=== PATIENT | female | born 1940 | race Caucasian/White ===

== ENCOUNTER 2016-08-09 03:47 | Observation (INO) | payer OTHER ==
[~2016-08-09] VITALS: Ht 172.7 cm; Wt 127.4 kg
[~2016-08-09 03:47] MED LIST: ACCUNEB0.63 MG/3 IH; ACTOS15 MG PO; AFRIN,GENASAL D15 ML BOTH NARES; ALAVERT10 MG PO; AMANTADINE100 M1 PO; AMANTADINE100 MG PO; AMITIZA24 MICROGR PO; AMITRIPTYLINE H50 MG PO; ASPIR-TRIN325 M1 PO; ASPIRIN325 MG PO; ATHENOL325 MG PO; ATIVAN0.5 MG PO; ATROVENT 00.5 MG/2.5 IH; BENZTROPINE MESY1 MG PO; BUPROPION XL300 MG PO; CHEWABLE-VITE1 EACH PO; CIPRO500 MG PO; CLARITIN-D 121 EACH PO; COGENTIN1 MG PO; COLACE100 MG PO; Cogentin PO; Colace PO; DAILY VALUE1 EACH PO; DAILY VITAMIN1 EAC8 PO; DULCOLAX10 MG PR; DULCOLAX5 MG PO; Dulcolax PO; ECOTRIN325 MG PO; ELAVIL25 MG PO; ELAVIL50 MG PO; ENDOCET 5-3251 EACH PO; EUCERIN CREME120 GM TP; Ecotrin PO; Elavil PO; FENOFIBRATE48 MG PO; FERROUS SULFAT325 MG PO; FLEET ENEMA EX230 ML PR; FLEET ENEMA-AD118 ML PR; FLEET MINERAL133 ML PR; FLORASTOR250 MG PO; FLUPHENAZINE HC10 MG PO; FLUPHENAZINE HCL5 MG PO; FLUVIRIN IM; GABAPENTIN600 MG PO; GLUCAGEN1 MG IM/SC; GLUCAGON1 MG IM; GLUCOPHAGE1000 MG; GLUTOSE 1537.5 GM PO; GUAIFENESIN DA473 ML PO; HUMALOG100 UNIT/1 SC; HUMALOG100 UNIT/2 SC; HYDROCODON-ACE1 EAC7; IRON325 M1 PO; IRON325 MG PO; JANUVIA25 M1 PO; KLOR-CON20 MEQ PO; LANTUS 10100 UNITS/ SC; LANTUS 3 M100 UNITS1 SC; LATANOPROST2.5 ML BOTH EYES; LEVAQUIN750 MG PO; LEVEMIR FL100 UNITS/ SC; LEVEMIR100 UNIT/2 SC; LEVOFLOXACIN500 MG PO; LEVOFLOXACIN750 MG PO; LIDOCAINE 2% TP; LISINOPRIL10 MG PO; LITE COAT ASPI325 M1 PO; LOPRESSOR25 MG PO; LORAZEPAM0.5 MG PO; MELATIN3 MG PO; MELATONIN5 M1 PO; MELATONIN5 M3 PO; METFORMIN HCL1000 MG PO; METFORMIN HCL500 MG PO; METOPROLOL TART25 MG PO; MILK OF MAG; MILK OF MAGN PO; MIRALAX17 GM PO; MIRALAX255 GM PO; MORPHINE SULFAT30 M1 PO; MORPHINE SULFAT30 M5 PO; MOTRIN400 MG PO; MS CONTIN,ORAMO30 MG PO; MUCINEX D ER T1 EACH PO; MUCINEX600 MG PO; MULTIPLE VITAM1 EACH PO; MULTIVITAMINS1 EAC2 PO; NEURONTIN600 MG PO; NOVOLOG 10100 UNITS/ SC; NOVOLOG 10100 UNITS/ SQ; NOVOLOG PE100 UNITS/ SC; Neurontin PO; OCEAN NASAL 0.645 ML BOTH NARES; ONE DAILY1 EAC3 PO; OXAYDO5 MG PO; PAIN RELIEF325 MG PO; PERCOCET 5/31 TABLET PO; PERI-COLACE TA1 EACH PO; PHILLIPS'400 MG/5 M PO; PRAVASTATIN SOD40 MG PO; PRINIVIL10 MG PO; PRINIVIL20 MG PO; PROLIXIN10 MG PO; PROLIXIN2.5 MG PO; PROMETHAZINE HC25 MG PR; QUETIAPINE FUM200 MG PO; RISAMINE OINTM113 GM TP; SENNA CONCENTR8.6 MG PO; SENNA LAXATIVE8.6 MG PO; SENNA PLUS TAB1 EACH PO; SENNA S TABLET1 EACH PO; SENNA-DOCUSATE1 EAC1 PO; SENNA-S TABLET1 EACH PO; SIMVASTATIN20 MG PO; SODIUM CHLORIDE1 G1 PO; SYSTANE 0.3-0.1 EACH BOTH EYES; SYSTANE 0.300 DROP/1 BOTH EYES; SYSTANE GEL EYE10 ML BOTH EYES; SYSTANE GEL EYE10 ML LEFT EYE; SYSTANE ULTRA 015 ML BOTH EYES; TOPAMAX50 MG PO; TOPIRAGEN50 MG PO; TOPIRAMATE50 MG; TOPIRAMATE50 MG PO; TRICOR48 MG PO; TRIHEXYPHENIDYL2 MG PO; TYLENOL EXTRA500 MG PO; TYLENOL REGULA325 MG PO; Tricor PO; XALATAN2.5 ML BOTH EYES; ZANTAC75 M1 PO; ZESTRIL10 MG PO; ZOCOR20 MG PO; ZYRTEC5 MG PO
[2016-08-09 04:24] LABS: EOSINOPHIL (%) 0.7 % (0-5); EOSINOPHIL COUNT 0.1 K/uL (0-0.3); HEMATOCRIT 34.7 % (36.0-46.0); IMMATURE GRANULOCYTE COUNT 0.1 K/uL; INSTRUMENT ABS NEUTROPHIL CT 10.9 K/uL; LYMPHOCYTE COUNT 0.6 K/uL (1.0-2.8); MCH 29.9 PG (29.0-34.0); MCHC 33.4 G/DL (30.0-36.0); MCV 89.4 FL (83-99); MEAN PLAT.VOLUME 12.7 uM^3 (9.5-12.4); MONOCYTE (%) 4.2 % (3-12); MONOCYTE COUNT 0.5 K/uL (0-0.8); NEUTROPHIL COUNT 10.9 K/uL (1.8-6.4); RBC DIS.WIDTH-CV 13.2 % (11.8-14.6); RBC DIS.WIDTH-SD 43.2 % (39-53); RED BLOOD COUNT 3.88 M/uL (3.80-5.20); WHITE BLOOD COUNT 12.3 K/uL (4.1-10.2)
[2016-08-09 04:26] LABS: PLATELET COUNT 174 K/uL (156-360)
[2016-08-09 04:35] LABS: CHLORIDE 103 mEq/L (99-109); SODIUM 140 mEq/L (136-147)
[2016-08-09 04:38] LABS: ANION GAP 13 MEQ/L (2-14)
[2016-08-09 04:40] LABS: GFR ESTIMATE (CALCULATED) > 59 mL/min/
[2016-08-09 04:41] LABS: UREA NITROGEN (BUN) 12 mg/dL (9-23)
[2016-08-09 04:43] LABS: GLUCOSE 195 mg/dL (70-99); POTASSIUM 4.4 mEq/L (3.7-5.4)
[2016-08-09 04:44] LABS: TROP-I INTERPRETATION NEGATIVE; TROPONIN-I < 0.01 ng/mL (0.0-0.30)
[2016-08-09] MEDS ORDERED: LIPITOR10 MG PO (08:57)
[2016-08-09] MEDS ORDERED: BREATHE RIGHT1 EACH TP (08:58)
[2016-08-09] MEDS ORDERED: PROLIXIN10 MG PO (09:00)
[2016-08-09] MEDS ORDERED: LISINOPRIL5 MG PO (09:03)
[2016-08-09] MEDS ORDERED: SEROQUEL200 MG PO (09:05)
[2016-08-09] MEDS ORDERED: ZOLOFT50 MG PO (09:06)
[2016-08-09] MEDS ORDERED: ELIQUIS5 MG PO (09:08)
[2016-08-09] MEDS ORDERED: NEURONTIN400 MG PO (09:10)
[2016-08-09] MEDS ORDERED: SINEMET 25-1001 EACH PO (09:13)
[2016-08-09] MEDS ORDERED: DUONEB 2.5-0.5 M3 ML AEROSOL (09:15)
[2016-08-09] MEDS ORDERED: GLUCOSE GEL15 GM PO (09:16)
[2016-08-09] MEDS ORDERED: NITROSTAT0.4 MG SL (09:18)
[2016-08-09] MEDS ORDERED: TUMS500 MG PO (09:19)
[2016-08-09 09:58] VITALS: BP 109/54
[2016-08-09 10:13] LABS: POINT-OF-CARE METER ID UU13113700
[2016-08-09 11:49] LABS: METH RESISTANT S AUREUS PCR NEGATIVE (NEGATIVE)
[2016-08-09 11:57] LABS: PROBE CHECK PASS; SPECIMEN PROCESSING CONTROL PASS
[2016-08-09 12:09] VITALS: BP 93/60
[2016-08-09 13:25] LABS: TROP-I INTERPRETATION NEGATIVE; TROPONIN-I < 0.01 ng/mL (0.0-0.30)
[2016-08-09 18:05] LABS: POINT-OF-CARE METER ID UU13113700
[2016-08-09 20:26] LABS: TROP-I INTERPRETATION NEGATIVE; TROPONIN-I < 0.01 ng/mL (0.0-0.30)
[2016-08-09 20:47] VITALS: BP 100/40
[2016-08-09 21:07] LABS: EOSINOPHIL (%) 0.9 % (0-5); EOSINOPHIL COUNT 0.1 K/uL (0-0.3); HEMATOCRIT 31.4 % (36.0-46.0); IMMATURE GRANULOCYTE (%) 0.9 % (0.0-0.7); IMMATURE GRANULOCYTE COUNT 0.1 K/uL; MCHC 33.8 G/DL (30.0-36.0); MEAN PLAT.VOLUME 12.2 uM^3 (9.5-12.4); MONOCYTE (%) 4.8 % (3-12); MONOCYTE COUNT 0.5 K/uL (0-0.8); NEUTROPHIL (%) 83.1 % (45-76); PLATELET COUNT 185 K/uL (156-360); RBC DIS.WIDTH-CV 13.2 % (11.8-14.6); RBC DIS.WIDTH-SD 43.1 % (39-53); RED BLOOD COUNT 3.53 M/uL (3.80-5.20); WHITE BLOOD COUNT 9.6 K/uL (4.1-10.2)
[2016-08-09 21:17] LABS: INTER. NORMALIZED RATIO 1.2; PROTHROMBIN TIME 11.8 (9.2-11.2)
[2016-08-09 21:29] LABS: ALKALINE PHOSPHATASE 183 IU/L (3-129); ANION GAP 10 MEQ/L (2-14); CHLORIDE 99 MEQ/L (99-109); GFR ESTIMATE (CALCULATED) > 59 mL/min/; GLUCOSE 196 mg/dL (70-99); POTASSIUM 3.6 MEQ/L (3.7-5.4); SAMPLE HEMOLYSIS CHECK 0; SAMPLE ICTERIC CHECK 0; SAMPLE LIPEMIA CHECK 0; SODIUM 134 MEQ/L (136-147); TOTAL BILIRUBIN 0.7 MG/DL (0.0-1.0); UREA NITROGEN (BUN) 13 mg/dL (9-23)
[2016-08-10] VITALS: BP 125/69
[2016-08-10 01:17] LABS: ADD MIUA? YES; BILIRUBIN NEGATIVE; BLOOD SMALL; COLOR YELLOW ((YELLOW)); GLUCOSE (STRIP) NEGATIVE; KETONES NEGATIVE; LEUKOCYTES LARGE; NITRITE POSITIVE; PROTEIN (STRIP) NEGATIVE; SPECIFIC GRAVITY 1.005 (1.000-1.030); UROBILINOGEN 0.2 MG/DL (0.2-1.0)
[2016-08-10 01:59] LABS: AMORPHOUS URATES CRYSTALS 3+; BACTERIA 2+ /HPF; CRYSTALS PRESENT; EPITHELIAL CELLS 1+ /HPF; MUCUS 1+ /LPF; UCUL ADDED? YES; WHITE BLOOD CELLS 15-20 /HPF (0-5)
[2016-08-10 05:00] VITALS: BP 137/69
[2016-08-10 08:44] LABS: POINT-OF-CARE METER ID UU13113700
[2016-08-10 09:24] LABS: HEMATOCRIT 30.6 % (36.0-46.0); MCH 30.6 PG (29.0-34.0); MCHC 33.7 G/DL (30.0-36.0); MCV 90.8 FL (83-99); MEAN PLAT.VOLUME 12.1 uM^3 (9.5-12.4); PLATELET COUNT 163 K/uL (156-360); RBC DIS.WIDTH-CV 13.4 % (11.8-14.6); RBC DIS.WIDTH-SD 44.3 % (39-53); RED BLOOD COUNT 3.37 M/uL (3.80-5.20); WHITE BLOOD COUNT 7.1 K/uL (4.1-10.2)
[2016-08-10 09:41] LABS: ANION GAP 9 MEQ/L (2-14); CHLORIDE 102 MEQ/L (99-109); POTASSIUM 3.7 MEQ/L (3.7-5.4); SAMPLE HEMOLYSIS CHECK 0; SAMPLE ICTERIC CHECK 0; SAMPLE LIPEMIA CHECK 0; SODIUM 139 MEQ/L (136-147); TOTAL BILIRUBIN 0.7 MG/DL (0.0-1.0)
[2016-08-10 09:49] LABS: ALKALINE PHOSPHATASE 178 IU/L (3-129); GFR ESTIMATE (CALCULATED) > 59 mL/min/; GLUCOSE 161 mg/dL (70-99); UREA NITROGEN (BUN) 10 mg/dL (9-23)
[2016-08-10 11:50] VITALS: BP 127/90
[2016-08-10] MEDS ORDERED: LEVAQUIN500 MG PO (12:10)
[2016-08-10 12:25] LABS: POINT-OF-CARE METER ID UU13113700
== END 2016-08-10 16:03 ==
LOC: EME 03:47 → 5WEST 07:34 → EDOF 07:34 → 5WEST 08:56
PROVIDERS: Emergency Medicine; Hospitalist; Internal Medicine; Nurse Practitioner Adult Health; Physician Assistant Medical
DX: R07.89 Other chest pain (principal); N39.0 Urinary tract infection, site not specified; D72.829 Elevated white blood cell count, unspecified; M79.7 Fibromyalgia; E11.42 Type 2 diabetes mellitus with diabetic polyneuropathy; Z79.4 Long term (current) use of insulin; I10 Essential (primary) hypertension; E66.01 Morbid (severe) obesity due to excess calories; Z68.41 Body mass index [BMI] 40.0-44.9, adult; F20.9 Schizophrenia, unspecified; F32.9 Major depressive disorder, single episode, unspecified; R32 Unspecified urinary incontinence; L24.89 Irritant contact dermatitis due to other agents; I95.9 Hypotension, unspecified; G89.4 Chronic pain syndrome; I45.10 Unspecified right bundle-branch block
CPT/HCPCS: 71010; 80048; 80053; 81003; 82948; 83605; 84484; 85025; 85025 91; 85027; 85610; 87040; 87077; 87086; 87186; 87641; 87801; 93005; 93306; 99202; 99281; 99284; G0378; J1650; J1815; J1956; J3010; J7120

== ENCOUNTER 2017-02-14 11:06 | Inpatient (IN) | payer OTHER ==
[~2017-02-14] VITALS: Ht 172.7 cm; Wt 126.4 kg
[~2017-02-14 11:06] MED LIST changes: +BREATHE RIGHT1 EACH TP; +DUONEB 2.5-0.5 M3 ML AEROSOL; +ELIQUIS5 MG PO; +GLUCOSE GEL38 GM PO; +JANUVIA100 MG PO; -JANUVIA25 M1 PO; +LEVAQUIN500 MG PO; +LIPITOR10 MG PO; +LISINOPRIL5 MG PO; +NEURONTIN400 MG PO; +NITROSTAT0.4 MG SL; +SEROQUEL200 MG PO; +SINEMET 25-1001 EACH PO; +TUMS500 MG PO; +ZOLOFT50 MG PO
[2017-02-14 11:31] LABS: BASOPHIL (%) 0.1 % (0-1); EOSINOPHIL (%) 0 % (0-5); HEMATOCRIT 30.4 % (36.0-46.0); HEMOGLOBIN 10.3 G/DL (11.9-15.5); IMMATURE GRANULOCYTE (%) 0.8 % (0.0-0.7); LYMPHOCYTE (%) 2.9 % (15-42); LYMPHOCYTE COUNT 0.5 K/uL (1.0-2.8); MCH 30.7 PG (29.0-34.0); MCHC 33.9 G/DL (30.0-36.0); MCV 90.5 FL (83-99); MONOCYTE (%) 4.6 % (3-12); MONOCYTE COUNT 0.7 K/uL (0-0.8); NEUTROPHIL (%) 91.6 % (45-76); NEUTROPHIL COUNT 14.8 K/uL (1.8-6.4); PLATELET COUNT 169 K/uL (156-360); RBC DIS.WIDTH-CV 14.3 % (11.8-14.6); RBC DIS.WIDTH-SD 45.8 % (39-53); RED BLOOD COUNT 3.36 M/uL (3.80-5.20); WHITE BLOOD COUNT 16.2 K/uL (4.1-10.2)
[2017-02-14 11:52] LABS: ALBUMIN 2.9 g/dL (3.2-4.8); CHLORIDE 97 mEq/L (99-109); POTASSIUM 4.5 mEq/L (3.7-5.4); SODIUM 131 mEq/L (136-147)
[2017-02-14 11:54] LABS: GLUCOSE 376 mg/dL (70-99); TOTAL PROTEIN 5.8 g/dL (6.4-8.3)
[2017-02-14 11:56] LABS: TOTAL BILIRUBIN 8.2 mg/dL (0.0-1.0)
[2017-02-14 11:58] LABS: APPEARANCE CLOUDY ((CLEAR)); BILIRUBIN MODERATE; BLOOD SMALL; COLOR AMBER ((YELLOW)); GLUCOSE (STRIP) NEGATIVE; KETONES 5; LEUKOCYTES NEGATIVE; NITRITE NEGATIVE; PROTEIN (STRIP) 100; SPECIFIC GRAVITY 1.017 (1.000-1.030)
[2017-02-14 11:58] LABS: ALKALINE PHOSPHATASE 282 IU/L (3-129); CREATININE 1.2 mg/dL (0.6-1.3); GFR ESTIMATE (CALCULATED) 47 mL/min/
[2017-02-14 11:59] LABS: UREA NITROGEN (BUN) 27 mg/dL (9-23)
[2017-02-14 12:00] LABS: AST (GOT) 296 IU/L (2-34); DIRECT BILIRUBIN 7.2 mg/dL (0.0-0.3)
[2017-02-14 12:01] LABS: ALT (GPT) 415 IU/L (3-49); LIPASE 21 U/L (1.0-51.0)
[2017-02-14 12:20] LABS: TROP-I INTERPRETATION NEGATIVE; TROPONIN-I 0.01 ng/mL (0.0-0.30)
[2017-02-14 12:30] LABS: INTER. NORMALIZED RATIO 2.3
[2017-02-14 12:30] LABS: AMORPHOUS URATES CRYSTALS 3+; BACTERIA 3+ /HPF; EPITHELIAL CELLS 2+ /HPF; MUCUS NONE SEEN /LPF; RED BLOOD CELLS 0-5 /HPF (0-5); UCUL ADDED? YES; WHITE BLOOD CELLS 0-5 /HPF (0-5)
[2017-02-14 12:59] LABS: ICTOTEST POSITIVE
[2017-02-14] MEDS ORDERED: FLUPHENAZINE HCL5 MG PO (16:27)
[2017-02-14] MEDS ORDERED: KLOR-CON SPRIN10 MEQ PO (16:28)
[2017-02-14] MEDS ORDERED: LANTUS 3 M100 UNITS1 SC (16:29)
[2017-02-14] MEDS ORDERED: HYDROCODON-ACE1 EAC7 PO (16:34)
[2017-02-14] MEDS ORDERED: MYSOLINE50 MG PO (16:36)
[2017-02-14] MEDS ORDERED: MIRALAX17 GM PO (16:36)
[2017-02-14] MEDS ORDERED: IMODIUM A-D2 M2 PO (16:41)
[2017-02-14 20:43] VITALS: BP 106/53
[2017-02-15] VITALS (7 sets, daily range): BP systolic 96–172; BP diastolic 42–78
[2017-02-15 05:39] LABS: INTER. NORMALIZED RATIO 2.5
[2017-02-15 05:45] LABS: BASOPHIL (%) 0.1 % (0-1); EOSINOPHIL (%) 0.2 % (0-5); HEMATOCRIT 22.1 % (36.0-46.0); IMMATURE GRANULOCYTE (%) 0.7 % (0.0-0.7); LYMPHOCYTE (%) 11.4 % (15-42); LYMPHOCYTE COUNT 0.9 K/uL (1.0-2.8); MCH 29.7 PG (29.0-34.0); MCHC 32.1 G/DL (30.0-36.0); MCV 92.5 FL (83-99); MONOCYTE COUNT 0.5 K/uL (0-0.8); NEUTROPHIL (%) 81.6 % (45-76); NEUTROPHIL COUNT 6.7 K/uL (1.8-6.4); RBC DIS.WIDTH-CV 14.6 % (11.8-14.6); RBC DIS.WIDTH-SD 48.6 % (39-53); WHITE BLOOD COUNT 8.2 K/uL (4.1-10.2)
[2017-02-15 05:46] LABS: HEMOGLOBIN 7.1 G/DL (11.9-15.5); RED BLOOD COUNT 2.39 M/uL (3.80-5.20)
[2017-02-15 06:06] LABS: ALBUMIN 2.3 G/DL (3.2-4.8); ALKALINE PHOSPHATASE 162 IU/L (3-129); ALT (GPT) 202 IU/L (3-49); AST (GOT) 77 IU/L (2-34); CHLORIDE 105 MEQ/L (99-109); CREATININE 1.1 MG/DL (0.6-1.3); GFR ESTIMATE (CALCULATED) 51 mL/min/; GLUCOSE 235 mg/dL (70-99); POTASSIUM 4.1 MEQ/L (3.7-5.4); SODIUM 135 MEQ/L (136-147); TOTAL BILIRUBIN 2.7 MG/DL (0.0-1.0); TOTAL PROTEIN 4.2 G/DL (6.4-8.3); UREA NITROGEN (BUN) 37 mg/dL (9-23)
[2017-02-15 06:22] LABS: PLAT.SUFFICIENCY ADEQUATE
[2017-02-15 06:24] LABS: PLATELET COUNT 111 K/uL (156-360)
[2017-02-16 04:40] VITALS: BP 128/59
[2017-02-16 06:17] LABS: GFR ESTIMATE (CALCULATED) > 59 mL/min/; UREA NITROGEN (BUN) 22 mg/dL (9-23)
[2017-02-16 06:23] LABS: CREATININE 0.6 MG/DL (0.6-1.3)
[2017-02-16 08:30] VITALS: BP 130/64
[2017-02-16 08:47] LABS: BASOPHIL (%) 0.4 % (0-1); EOSINOPHIL (%) 4.8 % (0-5); EOSINOPHIL COUNT 0.3 K/uL (0-0.3); HEMATOCRIT 23.5 % (36.0-46.0); HEMOGLOBIN 7.5 G/DL (11.9-15.5); IMMATURE GRANULOCYTE (%) 0.4 % (0.0-0.7); LYMPHOCYTE (%) 16.7 % (15-42); LYMPHOCYTE COUNT 0.9 K/uL (1.0-2.8); MCH 29.8 PG (29.0-34.0); MCHC 31.9 G/DL (30.0-36.0); MCV 93.3 FL (83-99); MONOCYTE (%) 6.1 % (3-12); MONOCYTE COUNT 0.3 K/uL (0-0.8); NEUTROPHIL (%) 71.6 % (45-76); NEUTROPHIL COUNT 3.9 K/uL (1.8-6.4); PLATELET COUNT 132 K/uL (156-360); RBC DIS.WIDTH-CV 14.6 % (11.8-14.6); RBC DIS.WIDTH-SD 49.4 % (39-53); RED BLOOD COUNT 2.52 M/uL (3.80-5.20); WHITE BLOOD COUNT 5.4 K/uL (4.1-10.2)
[2017-02-16 08:58] LABS: ALBUMIN 2.5 G/DL (3.2-4.8); ALKALINE PHOSPHATASE 149 IU/L (3-129); ALT (GPT) 142 IU/L (3-49); CHLORIDE 109 MEQ/L (99-109); POTASSIUM 3.6 MEQ/L (3.7-5.4); SODIUM 138 MEQ/L (136-147); TOTAL PROTEIN 4.5 G/DL (6.4-8.3)
[2017-02-16 09:02] LABS: AST (GOT) 41 IU/L (2-34); GLUCOSE 100 mg/dL (70-99); TOTAL BILIRUBIN 1.6 MG/DL (0.0-1.0)
[2017-02-16 12:30] VITALS: BP 116/64
[2017-02-16 16:40] VITALS: BP 128/70
[2017-02-16 19:10] VITALS: BP 138/80
[2017-02-16 22:25] VITALS: BP 120/68
[2017-02-17 03:53] VITALS: BP 148/65
[2017-02-17 06:13] LABS: BASOPHIL (%) 0.4 % (0-1); EOSINOPHIL (%) 4.7 % (0-5); EOSINOPHIL COUNT 0.2 K/uL (0-0.3); HEMATOCRIT 22.8 % (36.0-46.0); HEMOGLOBIN 7.5 G/DL (11.9-15.5); IMMATURE GRANULOCYTE (%) 0.6 % (0.0-0.7); LYMPHOCYTE (%) 23.5 % (15-42); LYMPHOCYTE COUNT 1.1 K/uL (1.0-2.8); MCH 31.3 PG (29.0-34.0); MCHC 32.9 G/DL (30.0-36.0); MONOCYTE (%) 7.8 % (3-12); MONOCYTE COUNT 0.4 K/uL (0-0.8); PLATELET COUNT 131 K/uL (156-360); RBC DIS.WIDTH-CV 14.9 % (11.8-14.6); RBC DIS.WIDTH-SD 52.4 % (39-53); WHITE BLOOD COUNT 4.7 K/uL (4.1-10.2)
[2017-02-17 06:28] LABS: INTER. NORMALIZED RATIO 1.4
[2017-02-17 06:45] LABS: ALBUMIN 2.5 G/DL (3.2-4.8); ALKALINE PHOSPHATASE 129 IU/L (3-129); ALT (GPT) 99 IU/L (3-49); AST (GOT) 31 IU/L (2-34); CHLORIDE 111 MEQ/L (99-109); CREATININE 0.4 MG/DL (0.6-1.3); GFR ESTIMATE (CALCULATED) > 59 mL/min/; GLUCOSE 121 mg/dL (70-99); POTASSIUM 3.8 MEQ/L (3.7-5.4); SODIUM 142 MEQ/L (136-147); TOTAL PROTEIN 4.6 G/DL (6.4-8.3); UREA NITROGEN (BUN) 12 mg/dL (9-23)
[2017-02-17 06:57] LABS: TOTAL BILIRUBIN 1.2 MG/DL (0.0-1.0)
[2017-02-17 08:00] VITALS: BP 142/70
[2017-02-17 12:06] VITALS: BP 138/76
[2017-02-17 16:00] VITALS: BP 148/78
[2017-02-17 19:30] VITALS: BP 130/65
[2017-02-18] VITALS (7 sets, daily range): BP systolic 118–149; BP diastolic 51–78
[2017-02-19 03:03] VITALS: BP 130/70
[2017-02-19 04:58] LABS: ALBUMIN 2.4 g/dL (3.2-4.8); POTASSIUM 3.2 mEq/L (3.7-5.4); SODIUM 138 mEq/L (136-147)
[2017-02-19 04:59] LABS: CHLORIDE 108 mEq/L (99-109)
[2017-02-19 05:01] LABS: GLUCOSE 177 mg/dL (70-99)
[2017-02-19 05:04] LABS: CREATININE 0.5 mg/dL (0.6-1.3); GFR ESTIMATE (CALCULATED) > 59 mL/min/; TOTAL BILIRUBIN 0.8 mg/dL (0.0-1.0); TOTAL PROTEIN 4.9 g/dL (6.4-8.3)
[2017-02-19 05:05] LABS: ALKALINE PHOSPHATASE 115 IU/L (3-129); UREA NITROGEN (BUN) 8 mg/dL (9-23)
[2017-02-19 05:07] LABS: ALT (GPT) 56 IU/L (3-49)
[2017-02-19 05:08] LABS: AST (GOT) 13 IU/L (2-34)
[2017-02-19 08:15] VITALS: BP 130/80
[2017-02-19 12:30] VITALS: BP 126/72
[2017-02-19 16:40] VITALS: BP 122/78
[2017-02-19 20:03] VITALS: BP 118/62
[2017-02-19 23:09] VITALS: BP 112/60
[2017-02-20] VITALS (7 sets, daily range): BP systolic 126–140; BP diastolic 60–86
[2017-02-21] VITALS (12 sets, daily range): BP systolic 138–164; BP diastolic 60–80
[2017-02-21 07:43] LABS: MCH 28.6 PG (29.0-34.0); NRBC (%) 0.5 /100 WBC (0-0); RBC DIS.WIDTH-SD 50.9 % (39-53)
[2017-02-21 07:44] LABS: HEMOGLOBIN 11.2 G/DL (11.9-15.5); MCV 89.5 FL (83-99); PLATELET COUNT 214 K/uL (156-360); RED BLOOD COUNT 3.91 M/uL (3.80-5.20)
[2017-02-21 08:01] LABS: CHLORIDE 103 MEQ/L (99-109); CREATININE 0.3 MG/DL (0.6-1.3); GFR ESTIMATE (CALCULATED) > 59 mL/min/; GLUCOSE 122 mg/dL (70-99); MAGNESIUM 1.3 mg/dl (1.3-2.7); PHOSPHORUS 2.9 mg/dL (2.5-4.9); POTASSIUM 3.3 MEQ/L (3.7-5.4); SODIUM 139 MEQ/L (136-147); UREA NITROGEN (BUN) 7 mg/dL (9-23)
[2017-02-21 09:29] LABS: ALBUMIN 2.9 G/DL (3.2-4.8); ALKALINE PHOSPHATASE 104 IU/L (3-129); ALT (GPT) 30 IU/L (3-49); AST (GOT) 17 IU/L (2-34); DIRECT BILIRUBIN 0.3 mg/dL (0.0-0.3); TOTAL BILIRUBIN 0.9 MG/DL (0.0-1.0); TOTAL PROTEIN 5.3 G/DL (6.4-8.3)
[2017-02-22 04:22] VITALS: BP 159/100
[2017-02-22 05:05] LABS: HEMATOCRIT 36.2 % (36.0-46.0); HEMOGLOBIN 11.8 G/DL (11.9-15.5); MCH 29.8 PG (29.0-34.0); MCHC 32.6 G/DL (30.0-36.0); MCV 91.4 FL (83-99); PLATELET COUNT 214 K/uL (156-360); RBC DIS.WIDTH-CV 16.4 % (11.8-14.6); RBC DIS.WIDTH-SD 53.1 % (39-53); RED BLOOD COUNT 3.96 M/uL (3.80-5.20); WHITE BLOOD COUNT 14.3 K/uL (4.1-10.2)
[2017-02-22 05:22] LABS: ALBUMIN 2.8 g/dL (3.2-4.8); CHLORIDE 105 mEq/L (99-109); POTASSIUM 3.9 mEq/L (3.7-5.4); SODIUM 138 mEq/L (136-147)
[2017-02-22 05:26] LABS: TOTAL BILIRUBIN 0.7 mg/dL (0.0-1.0)
[2017-02-22 05:27] LABS: GLUCOSE 195 mg/dL (70-99)
[2017-02-22 05:28] LABS: ALKALINE PHOSPHATASE 109 IU/L (3-129); CREATININE 0.7 mg/dL (0.6-1.3); GFR ESTIMATE (CALCULATED) > 59 mL/min/
[2017-02-22 05:29] LABS: UREA NITROGEN (BUN) 10 mg/dL (9-23)
[2017-02-22 05:31] LABS: ALT (GPT) 49 IU/L (3-49)
[2017-02-22 05:38] LABS: AST (GOT) 62 IU/L (2-34)
[2017-02-22 08:00] VITALS: BP 151/79
[2017-02-22 11:12] VITALS: BP 133/96
[2017-02-22 16:43] VITALS: BP 140/63
[2017-02-23 00:41] VITALS: BP 114/54
[2017-02-23 03:07] VITALS: BP 123/60
[2017-02-23 06:22] LABS: BASOPHIL (%) 0.2 % (0-1); EOSINOPHIL (%) 0.4 % (0-5); HEMATOCRIT 30.5 % (36.0-46.0); IMMATURE GRANULOCYTE (%) 0.4 % (0.0-0.7); LYMPHOCYTE (%) 9.6 % (15-42); MCH 28.9 PG (29.0-34.0); MCHC 31.8 G/DL (30.0-36.0); MCV 90.8 FL (83-99); MONOCYTE (%) 5.7 % (3-12); MONOCYTE COUNT 0.6 K/uL (0-0.8); NEUTROPHIL (%) 83.7 % (45-76); NEUTROPHIL COUNT 8.9 K/uL (1.8-6.4); PLATELET COUNT 212 K/uL (156-360); RBC DIS.WIDTH-CV 15.9 % (11.8-14.6); RBC DIS.WIDTH-SD 51.4 % (39-53); RED BLOOD COUNT 3.36 M/uL (3.80-5.20); WHITE BLOOD COUNT 10.6 K/uL (4.1-10.2)
[2017-02-23 06:26] LABS: ALBUMIN 2.5 G/DL (3.2-4.8); ALKALINE PHOSPHATASE 86 IU/L (3-129); ALT (GPT) 43 IU/L (3-49); AST (GOT) 45 IU/L (2-34); CHLORIDE 102 MEQ/L (99-109); CREATININE 0.6 MG/DL (0.6-1.3); GFR ESTIMATE (CALCULATED) > 59 mL/min/; GLUCOSE 191 mg/dL (70-99); POTASSIUM 3.5 MEQ/L (3.7-5.4); SODIUM 137 MEQ/L (136-147); TOTAL BILIRUBIN 0.9 MG/DL (0.0-1.0); TOTAL PROTEIN 4.9 G/DL (6.4-8.3); UREA NITROGEN (BUN) 17 mg/dL (9-23)
[2017-02-23 06:27] LABS: HEMOGLOBIN 9.7 G/DL (11.9-15.5)
[2017-02-23 08:20] VITALS: BP 138/58
[2017-02-23 08:45] VITALS: BP 146/48
[2017-02-23 15:50] VITALS: BP 150/60
[2017-02-23 23:46] VITALS: BP 171/73
[2017-02-24 05:59] LABS: BASOPHIL (%) 0.3 % (0-1); EOSINOPHIL COUNT 0.1 K/uL (0-0.3); HEMATOCRIT 30.6 % (36.0-46.0); HEMOGLOBIN 9.8 G/DL (11.9-15.5); IMMATURE GRANULOCYTE (%) 0.4 % (0.0-0.7); LYMPHOCYTE (%) 11.8 % (15-42); LYMPHOCYTE COUNT 1.1 K/uL (1.0-2.8); MCV 90.5 FL (83-99); MONOCYTE (%) 4.9 % (3-12); MONOCYTE COUNT 0.5 K/uL (0-0.8); NEUTROPHIL (%) 81.6 % (45-76); NEUTROPHIL COUNT 7.8 K/uL (1.8-6.4); PLATELET COUNT 205 K/uL (156-360); RBC DIS.WIDTH-CV 15.2 % (11.8-14.6); RBC DIS.WIDTH-SD 50.3 % (39-53); RED BLOOD COUNT 3.38 M/uL (3.80-5.20); WHITE BLOOD COUNT 9.6 K/uL (4.1-10.2)
[2017-02-24 06:32] LABS: ALBUMIN 2.3 G/DL (3.2-4.8); ALKALINE PHOSPHATASE 87 IU/L (3-129); ALT (GPT) 29 IU/L (3-49); CHLORIDE 102 MEQ/L (99-109); CREATININE 0.4 MG/DL (0.6-1.3); GFR ESTIMATE (CALCULATED) > 59 mL/min/; GLUCOSE 139 mg/dL (70-99); POTASSIUM 3.1 MEQ/L (3.7-5.4); SODIUM 139 MEQ/L (136-147); TOTAL BILIRUBIN 0.8 MG/DL (0.0-1.0); TOTAL PROTEIN 4.8 G/DL (6.4-8.3); UREA NITROGEN (BUN) 14 mg/dL (9-23)
[2017-02-24 06:33] LABS: AST (GOT) 21 IU/L (2-34)
[2017-02-24 07:34] VITALS: BP 179/75
[2017-02-24 15:34] VITALS: BP 165/70
[2017-02-25 00:21] VITALS: BP 189/82
[2017-02-25 04:04] VITALS: BP 175/74
[2017-02-25 06:58] VITALS: BP 130/66
[2017-02-25] MEDS ORDERED: NOVOLOG PE100 UNITS/ SC (14:24)
[2017-02-25 15:04] LABS: CHLORIDE 106 MEQ/L (99-109); SODIUM 141 MEQ/L (136-147)
[2017-02-25 15:05] LABS: POTASSIUM 3.9 MEQ/L (3.7-5.4)
[2017-02-25 15:15] LABS: CREATININE 0.4 MG/DL (0.6-1.3); GFR ESTIMATE (CALCULATED) > 59 mL/min/; GLUCOSE 240 mg/dL (70-99); UREA NITROGEN (BUN) 11 mg/dL (9-23)
[2017-02-25 15:42] VITALS: BP 172/70
== END 2017-02-25 17:47 | DRG 411 ==
LOC: EME 11:06 → EDOF 14:15 → 4EAST 14:15 → ENRESERV 14:56 → 4EAST 19:50 → ENRESERV 02-21 12:35 → 4EAST 02-21 20:21 → ENRESERV 02-22 13:35 → 5EAST 02-22 15:47
PROVIDERS: Emergency Medicine; Internal Medicine; Surgery
DX: K80.37 Calculus of bile duct with acute and chronic cholangitis with obstruction (principal); A41.9 Sepsis, unspecified organism; Z68.41 Body mass index [BMI] 40.0-44.9, adult; E87.1 Hypo-osmolality and hyponatremia; E87.2 Acidosis; R17 Unspecified jaundice; N30.00 Acute cystitis without hematuria; E66.01 Morbid (severe) obesity due to excess calories; E11.42 Type 2 diabetes mellitus with diabetic polyneuropathy; E11.65 Type 2 diabetes mellitus with hyperglycemia; E78.5 Hyperlipidemia, unspecified; F41.9 Anxiety disorder, unspecified; G20 Parkinson's disease; G25.0 Essential tremor; G89.4 Chronic pain syndrome; H40.9 Unspecified glaucoma; I10 Essential (primary) hypertension; K80.65 Calculus of gallbladder and bile duct with chronic cholecystitis with obstruction; K57.10 Diverticulosis of small intestine without perforation or abscess without bleeding; F20.9 Schizophrenia, unspecified; M79.7 Fibromyalgia; N32.3 Diverticulum of bladder; B95.2 Enterococcus as the cause of diseases classified elsewhere; B96.20 Unspecified Escherichia coli [E. coli] as the cause of diseases classified elsewhere; B96.4 Proteus (mirabilis) (morganii) as the cause of diseases classified elsewhere; Z79.01 Long term (current) use of anticoagulants; Z87.440 Personal history of urinary (tract) infections; Z88.9 Allergy status to unspecified drugs, medicaments and biological substances
CPT/HCPCS: 71010; 74000; 74177; 74300; 74328; 80048; 80053; 80076; 81003; 82565; 82948; 83605; 83690; 83735; 84100; 84484; 84520; 85025; 85025 91; 85027; 85610; 86850; 86900; 86901; 86920; 87040; 87077; 87081; 87086; 87186; 87641; 87801; 88304; 93005; 94799; 99281; 99285; C1725; C1755; C1769; C1894; C2625; J0131; J0330; J1170; J1335; J1815; J1956; J2250; J2370; J2405; J3010; J3480; J7030; J7050; J7120; P9016; S0020; S0074

== ENCOUNTER → 2017-05-24 | Outpatient (CLI) | payer OTHER ==
[~2017-05-24] VITALS: Ht 167.6 cm; Wt 114.3 kg
[~2017-05-24] MED LIST changes: +HYDROCODON-ACE1 EAC7 PO; +IMODIUM A-D2 M2 PO; +KLOR-CON SPRIN10 MEQ PO; +LIPITOR20 MG PO; +MYSOLINE50 MG PO; +NORCO 5/3251 TABLET PO; +SALINE NASAL SP45 ML BOTH NARES
== END ==
LOC: AMB 07:55
PROVIDERS: Internal Medicine Gastroenterology
DX: K80.50 Calculus of bile duct without cholangitis or cholecystitis without obstruction (principal); Z90.49 Acquired absence of other specified parts of digestive tract; Z79.01 Long term (current) use of anticoagulants; G20 Parkinson's disease; I48.91 Unspecified atrial fibrillation; E66.01 Morbid (severe) obesity due to excess calories; Z68.38 Body mass index [BMI] 38.0-38.9, adult; I10 Essential (primary) hypertension; E11.9 Type 2 diabetes mellitus without complications; F32.9 Major depressive disorder, single episode, unspecified; Z88.0 Allergy status to penicillin; Z88.1 Allergy status to other antibiotic agents
CPT/HCPCS: 74328; 82948; 87081; C1757; C1769; J0131; J0330; J1170; J1815; J2710; J7643